=== PATIENT | male | born 1960 | race Caucasian/White ===

== ENCOUNTER 2023-11-10 14:06 | Emergency (ER) | payer OTHER ==
[~2023-11-10] VITALS: Ht 177.8 cm; Wt 80.3 kg
[2023-11-10 23:27] LABS: HEMATOCRIT 42.5 % (39.0-48.0); MEAN CELL VOLUME 88.1 fL (80.0-100.00); MEAN CORPUSCULAR HEMOGLOBIN 31.2 pg (27.00-32.0); MEAN CORPUSCULAR HGB CONC 35.4 g/dl (32.0-36.0); PLATELET COUNT 131 K/uL (150-450); RED BLOOD COUNT 4.82 M/uL (4.00-6.00); RED CELL DISTRIBUTION WIDTH 13.5 % (11.5-14.5)
== END 2023-11-11 00:37 | disposition home or self-care (01) ==
LOC: ER 14:07
PROVIDERS: Emergency Medicine
DX: J10.1 Influenza due to other identified influenza virus with other respiratory manifestations (principal); Z20.822 Contact with and (suspected) exposure to COVID-19